=== PATIENT | female | born 1970 | race American Indian/Alaskan Native ===

== ENCOUNTER 2018-04-21 20:01 | Emergency (ER) | payer MEDICAID ==
[2018-04-21 20:24] VITALS: BP 141/86
[2018-04-21] MEDS ORDERED: TORADOL IM ONE (21:59)
--- NOTE | 2018-04-21 22:06 | Emergency Department Report ---
ED Lower Extremity HPI - General Chief Complaint: Extremity Injury, Lower Stated Complaint: LEFT LEG PAIN Time Seen by Provider: 04/21/18 21:58 Source: patient, EMS Mode of arrival: Wheelchair Limitations: Physical Limitation - History of Present Illness Initial Comments: Patient is a 47-year-old [place] female who presents for left hip pain chronic 4/10 aching exhausted by the common extensor prolonged sitting standing states she is out of her tramadol prescribed by pain management and can't get in for treatment of the month patient denies any fall or injury or trauma requesting a refill of same counseled patient Prescriptions on [place] p[employer] 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 denies: swelling, numbness, tingling - Related Data Previous Rx's Medication Instructions Recorded Last Taken Type Menthol/Camphor [[place] 1 applicatio TP TID #1 tube 04/21/18 Unknown Rx Ointment] Naproxen 500 mg PO BID PRN #30 tablet 04/21/18 Unknown Rx Allergies Allergy/AdvReac Type Severity Reaction Status Date / Time No Known Allergies Allergy Unverified 04/21/18 20:24 ED Review of Systems ROS: Stated complaint: LEFT LEG PAIN Other details as noted in HPI Constitutional: denies: chills, fever Eyes: denies: eye pain, eye discharge, vision change ENT: denies: ear pain, throat pain Respiratory: denies: cough, shortness of breath, wheezing Cardiovascular: denies: chest pain, palpitations Endocrine: no symptoms reported Gastrointestinal: denies: abdominal pain, nausea, diarrhea Genitourinary: denies: urgency, dysuria, discharge Musculoskeletal: arthralgia, myalgia Skin: denies: rash, lesions Neurological: denies: headache, weakness, paresthesias Psychiatric: denies: anxiety, depression Hematological/Lymphatic: denies: easy bleeding, easy bruising ED Past Medical Hx - Past Medical History Hx Hypertension: Yes - Surgical History Hx Cholecystectomy: Yes Additional Surgical History: PARTIAL HYSTERECTOMY - Social History Smoking Status: Never Smoker Substance Use Type: None - Medications Home Medications: Home Medications Medication Instructions Recorded Confirmed Last Taken Type Menthol/Camphor [[place] 1 applicatio TP TID #1 tube 04/21/18 Unknown Rx Ointment] Naproxen 500 mg PO BID PRN #30 tablet 04/21/18 Unknown Rx ED Physical Exam - General Limitations: Physical Limitation General appearance: alert, in no apparent distress - Head Head exam: Present: atraumatic, normocephalic - Eye Eye exam: Present: normal appearance - ENT ENT exam: Present: mucous membranes moist - Neck Neck exam: Present: normal inspection - Respiratory Respiratory exam: Present: normal lung sounds bilaterally. Absent: respiratory distress - Cardiovascular Cardiovascular Exam: Present: regular rate, normal rhythm. Absent: systolic murmur, diastolic murmur, rubs, gallop - GI/Abdominal GI/Abdominal exam: Present: soft, normal bowel sounds - Rectal Rectal exam: Present: deferred - Extremities Exam Extremities exam: Present: normal inspection, full ROM, normal capillary refill. Absent: joint swelling - Expanded Lower Extremity Exam Left Hip exam: Present: tenderness (left lateral hip muscle pain to deep palpation rom intact no swelling no ecchymosis no deformity no abrasion no laceration). Absent: swelling, abrasion, laceration, ecchymosis, deformity, crepidus, dislocation, erythema, external rotation, internal rotation, shortening, pelvic stability Upper Leg exam: Present: normal inspection Knee exam: Present: normal inspection, full ROM Lower Leg exam: Present: normal inspection, full ROM Ankle exam: Present: normal inspection, full ROM Foot/Toe exam: Present: normal inspection, full ROM Neuro vascular tendon exam: Present: no vascular compromise. Absent: pulse deficit, motor deficit, sensory deficit, tendon deficit, extremity cold to touch , pallor, abnormal 2-point discrimination, foot drop, peroneal nerve deficit, significant pain with passive ROM of distal joint Gait: Positive: observed and limited by pain ED Course Vital Signs 04/21/18 20:20 Temperature 98.3 F Pulse Rate 97 H Respiratory 18 Rate Blood Pressure 141/86 O2 Sat by Pulse 98 Oximetry ED Lower Extremity MDM - Medical Decision Making Plan ketorolac 30mg IM DC'd home with naproxen and Flexeril patient on gabapentin and tramadol will see pain management physician tomorrow, patient verbalizes understanding and agreement with discharge plan will be DC'd to home in stable condition at this time Critical care attestation.: If time is entered above; I have spent that time in minutes in the direct care of this critically ill patient, excluding procedure time. ED Disposition Clinical Impression: Chronic left hip pain Disposition: DC-01 TO HOME OR SELFCARE Is pt being admited?: No Does the pt Need Aspirin: No Condition: Good Instructions: Osteoarthritis (ED), Arthralgia (ED) Additional Instructions: follow up with your pain management doctor Dr. Wilkes tomorrow Prescriptions: Menthol/Camphor [[place] Ointment] 1 applicatio TP TID #1 tube Naproxen 500 mg PO BID PRN #30 tablet PRN Reason: pain Referrals: PRIMARY CARE, [Referring] - 3-5 Days Forms: Work/School Release Form(ED) Time of Disposition: 22:12
== END 2018-04-21 22:20 | disposition home or self-care (01) ==
LOC: ED 20:01
DX: G89.29 Other chronic pain (principal); M25.552 Pain in left hip; I10 Essential (primary) hypertension; Z90.710 Acquired absence of both cervix and uterus
CPT/HCPCS: 96372; 99283; J1885